=== PATIENT | female | born 1985 | race Caucasian/White ===

== ENCOUNTER 2019-07-01 21:52 | Inpatient (IN) | payer BC, OTHER ==
[~2019-07-01] VITALS: Ht 162.6 cm; Wt 86.0 kg
[2019-07-01] MEDS ORDERED: ONDANSETRON HCL 4 MG/2 ML VIAL IV ONE (22:15)
[2019-07-01 22:31] LABS: Basophils # (auto) 0.2 10 ^3/uL (0-0.2); Basophils % (auto) 0.9 % (0.0-2.0); Eosinophils # (auto) 0 10 ^3/uL (0-0.8); Eosinophils % (auto) 0.1 % (0.0-7.0); Hematocrit 36.8 % (36.0-46.0); Hemoglobin 12.3 g/dL (12.2-16.2); Lymphocytes # (auto) 0.8 10 ^3/uL (0.4-5.4); Lymphocytes % (auto) 4.6 % (10.0-50.0); Mean Corpuscular Hemoglobin 29.6 pg (28.0-32.0); Mean Corpuscular Hgb Conc. 33.3 g/dL (32.0-36.0); Mean Corpuscular Volume 88.8 fL (80.0-100.0); Monocytes # (auto) 0.5 10 ^3/uL (0-1.3); Monocytes % (auto) 2.5 % (0.0-12.0); Neutrophils # (auto) 16.9 10 ^3/uL (1.6-8.6); Neutrophils % (auto) 91.9 % (37.0-80.0); Platelet Count (auto) 369 10^3/uL (140-450); Red Blood Cells 4.14 10^6/uL (4.0-5.20); Red Cell Distribution Width 13.1 % (11.8-14.3); White Blood Cell 18.4 10^3/uL (4.4-10.8)
[2019-07-01 22:35] LABS: Urine WBC None Seen /hpf (0 - 5)
[2019-07-01 22:52] LABS: Urine Bacteria NONE SEEN /hpf (None Seen); Urine Blood 2+ /uL (Negative); Urine Mucus FEW (None Seen)
[2019-07-01 22:53] LABS: Albumin 3.5 g/dL (3.4-5.0); BUN/Creatinine Ratio 13.6; Calcium 8.5 mg/dL (8.5-10.1); Potassium 3.7 mmol/L (3.5-5.1)
[2019-07-01 22:56] LABS: Bilirubin, Total 0.2 mg/dL (0.2-1.0); Total Protein 7.5 g/dL (6.4-8.2)
[2019-07-01] MEDS ORDERED: KETOROLAC TROMETH 15 mg/ml 1ML VL IV ONE (23:15)
[2019-07-01] MEDS ORDERED: TAMSULOSIN HYDROCHLORIDE 0.4 MG CAP PO ONE (23:15)
[2019-07-01] MEDS ORDERED: SODIUM CHLORIDE 0.9% 1,000 ML IV ONE (23:15)
[2019-07-01] MEDS ORDERED: cefTRIAXone 1GM/50ML D5W 50 ML IV ONE (23:15)
[2019-07-01] MEDS ORDERED: TEMAZEPAM 15 MG CAP PO PRN (23:30)
[2019-07-01] MEDS ORDERED: ACETAMINOPHEN 325 MG TAB PO PRN (23:30)
[2019-07-01] MEDS ORDERED: HYDROcodone-ACET 5/325MG TAB PO PRN (23:30)
[2019-07-01] MEDS ORDERED: ONDANSETRON HCL 4 MG/2 ML VIAL IV PRN (23:30)
[2019-07-01] MEDS ORDERED: KETOROLAC TROMETH 15 mg/ml 1ML VL IV PRN (23:30)
[2019-07-01 23:56] VITALS: BP 112/64
--- NOTE | 2019-07-02 | NUR ---
[facility] admit from ER [facility] admitted to [facility] after SBAR received. Patient oriented to Marcy Silva, primary RN, unit, room, bed, and unit policies regarding patient care and visiting hours. Patient weighed by bed scale and encouraged to call if they need something. All questions and concerns addressed, patient verbalized understanding. NO S/SX OF DISTRESS OR SOB. PATIENT REPORTS PAIN 8/10.
[2019-07-02] MEDS ORDERED: MORPHINE SULF INJ 2 MG/ML SYRINGE 1ML IV PRN (00:15)
[2019-07-02] MEDS: SODIUM CHLORIDE 0.9% 1,000 ML IV SCH ×4 (01:00→19:55)
[2019-07-02 05:00] VITALS: BP 89/46
[2019-07-02 05:04] LABS: Basophils # (auto) 0.1 10 ^3/uL (0-0.2); Basophils % (auto) 0.5 % (0.0-2.0); Eosinophils # (auto) 0.1 10 ^3/uL (0-0.8); Eosinophils % (auto) 0.7 % (0.0-7.0); Hematocrit 32.8 % (36.0-46.0); Hemoglobin 10.9 g/dL (12.2-16.2); Lymphocytes # (auto) 2.3 10 ^3/uL (0.4-5.4); Lymphocytes % (auto) 19.1 % (10.0-50.0); Mean Corpuscular Hemoglobin 29.6 pg (28.0-32.0); Mean Corpuscular Hgb Conc. 33.3 g/dL (32.0-36.0); Mean Corpuscular Volume 89.1 fL (80.0-100.0); Monocytes # (auto) 0.7 10 ^3/uL (0-1.3); Monocytes % (auto) 6.2 % (0.0-12.0); Neutrophils # (auto) 8.8 10 ^3/uL (1.6-8.6); Neutrophils % (auto) 73.5 % (37.0-80.0); Platelet Count (auto) 305 10^3/uL (140-450); Red Blood Cells 3.68 10^6/uL (4.0-5.20)
[2019-07-02 05:21] LABS: BUN/Creatinine Ratio 14.5; Calcium 8.1 mg/dL (8.5-10.1); Potassium 3.6 mmol/L (3.5-5.1)
--- NOTE | 2019-07-02 07:40 | NUR ---
Opening Note Assumed pt care from NOC RN. Pt is a/ox4 with no s/s of distress or SOB. Pt is currently laying upright in bed with mild c/o pain, 3/10, located in her abdomen. Discussed POC with pt and pending urology consult; pt verbalized understanding. Safety measures maintained with call light within reach, bed in lowest position and side rails up. Will continue to monitor for changes.
[2019-07-02 09:00] VITALS: BP 86/54
[2019-07-02] MEDS: FAMOTIDINE 20 MG TAB PO SCH ×2 (09:14→21:53)
--- NOTE | 2019-07-02 12:11 | NUR ---
Dr Berg at Bedside MD to see pt. Discussed POC with pt. New orders given, will implement.
[2019-07-02 12:42] VITALS: BP 100/60
--- NOTE | 2019-07-02 16:07 | NUR ---
Urine Strainer Provided to Pt Strainer provided to pt. Will continue to monitor.
--- NOTE | 2019-07-02 16:13 | NUR ---
Mild Swelling Noted to Pt's L hand Mild swelling noted to pt's L hand. IV is still intact and no infiltration noted. No numbness or pain associated with mild swelling. Will continue to monitor.
[2019-07-02 17:00] VITALS: BP 103/61
--- NOTE | 2019-07-02 19:30 | NUR ---
OPENING SHIFT NOTE Assumed care of patient, who is A&O x4. Currently on RA with no s/s of distress. Denies pain at this time. Patient is ambulatory without the use of assistive devices. PIV in left AC is intact and patent. IVF infusing as ordered. POC discussed with patient who verbalizes understanding. Bed is in low locked position with side rails up x2. Call light is within reach and patient encouraged to call for assistance when needed. Will continue to monitor for changes PRN.
[2019-07-02 21:00] VITALS: BP 99/61
--- NOTE | 2019-07-03 02:10 | NUR ---
Patient ambulated to restroom to void. Urine was strained and two small pink tinged calculi obtained. Placed in specimen cup. Patient instructed to continue straining urine. Verbalizes understanding.
[2019-07-03 04:30] VITALS: BP_SYST 102; BP_SYST 114; BP_DIAS 47; BP_DIAS 60
[2019-07-03] MEDS: SODIUM CHLORIDE 0.9% 1,000 ML IV SCH (04:43)
[2019-07-03 05:58] LABS: Basophils # (auto) 0.1 10 ^3/uL (0-0.2); Basophils % (auto) 0.7 % (0.0-2.0); Eosinophils # (auto) 0.1 10 ^3/uL (0-0.8); Hematocrit 30.8 % (36.0-46.0); Hemoglobin 10.4 g/dL (12.2-16.2); Lymphocytes # (auto) 2.1 10 ^3/uL (0.4-5.4); Lymphocytes % (auto) 27.8 % (10.0-50.0); Mean Corpuscular Hemoglobin 30.6 pg (28.0-32.0); Mean Corpuscular Hgb Conc. 33.9 g/dL (32.0-36.0); Mean Corpuscular Volume 90.3 fL (80.0-100.0); Monocytes # (auto) 0.6 10 ^3/uL (0-1.3); Monocytes % (auto) 7.7 % (0.0-12.0); Neutrophils # (auto) 4.6 10 ^3/uL (1.6-8.6); Neutrophils % (auto) 61.8 % (37.0-80.0); Nucleated Red Blood Cells % 0.1 %; Platelet Count (auto) 256 10^3/uL (140-450); Red Blood Cells 3.41 10^6/uL (4.0-5.20); Red Cell Distribution Width 13.1 % (11.8-14.3); White Blood Cell 7.5 10^3/uL (4.4-10.8)
[2019-07-03 06:25] LABS: Calcium 7.8 mg/dL (8.5-10.1); Potassium 3.6 mmol/L (3.5-5.1)
[2019-07-03 06:28] LABS: BUN/Creatinine Ratio 12.9
--- NOTE | 2019-07-03 07:31 | NUR ---
Opening Note Assumed pt care from NOC RN. Pt is a/ox4 with no s/s of distress or SOB. Pt is currently sitting upright in bed with mild c/o tenderness, 2/10 to abdomen. No sharp pain since passing stone last night. Stone is currently in specimen cup at bedside. Discussed POC with pt; pt verbalized understanding. Safety measures maintained with call light within reach, bed in lowest position and side rails up. Will continue to monitor.
[2019-07-03 08:51] VITALS: BP 99/60
[2019-07-03] MEDS: FAMOTIDINE 20 MG TAB PO SCH (09:03)
--- NOTE | 2019-07-03 10:00 | NUR ---
Dr Lux at Bedside MD plans to send pt home. Will implement and continue to monitor.
[2019-07-03 10:11] VITALS: BP 99/60
--- NOTE | 2019-07-03 10:40 | NUR ---
IV D/C'ed IV to pt;s L FA removed. Catheter was removed fully intact. Site is asymptomatic. Pressure was applied to site for 3 minutes with gauzed and then wrapped in coban. Pt instructed to keep dressing on for 30 minutes; pt verbalized understanding.
--- NOTE | 2019-07-03 11:10 | NUR ---
Pt D/C'ed Off Unit Pt ambulated off unit. Pt is a/ox4 with no s/s of distress or SOB. Pt provided with all education material, all follow-up information, all belongings and all questions were answered. IV was d/c'ed prior to d/c off unit.
== END 2019-07-03 11:10 | disposition home or self-care (01) | DRG 694 ==
LOC: EDBD 21:52 → ER 21:52 → CENTRAL 21:53
PROVIDERS: ADMIT Nurse Practitioner; ATTEND Internal Medicine
DX: N13.2 Hydronephrosis with renal and ureteral calculous obstruction (principal); R65.10 Systemic inflammatory response syndrome (SIRS) of non-infectious origin without acute organ dysfunction; D72.829 Elevated white blood cell count, unspecified; E66.9 Obesity, unspecified; Z98.84 Bariatric surgery status; Z68.32 Body mass index [BMI] 32.0-32.9, adult
CPT/HCPCS: 36415; 74176; 80048; 80053; 81001; 83690; 85025; 93005; G0378; J0696; J2405